=== PATIENT | male | born 1960 | race Two or more races ===

== ENCOUNTER 2024-06-21 06:25 | Day surgery (SDC) | payer MEDICARE, SELFPAY | END 2024-06-21 12:20 | disposition home or self-care (01) | LOC: GI 06:25 | PROVIDERS: ATTENDING PHYSICIAN Surgery | DX: Z12.11 Encounter for screening for malignant neoplasm of colon (principal); D12.2 Benign neoplasm of ascending colon; K62.1 Rectal polyp; Z86.0100 Personal history of colon polyps, unspecified; Z80.0 Family history of malignant neoplasm of digestive organs | CPT/HCPCS: 45385; 45380; 88305 ==